=== PATIENT | female | born 1975 | race African-American/Black ===

== ENCOUNTER 2019-05-04 14:48 | Emergency (ER) | payer OTHER, BC ==
[2019-05-04] MEDS ORDERED: OXYMETAZOLINE HCL 0.05% NASAL SPRAY 15 ML BOTTLE NASL ONE (15:42)
--- NOTE | 2019-05-04 17:13 | ER Document Report ---
Entered by CHRISTOPHE PEPPER SCRIBE 05/04/19 1542 Acting as scribe for:PIPPA CARDOZA MD ED ENT - General Chief Complaint: Nose Bleed Stated Complaint: NOSE BLEED Time Seen by Provider: 05/04/19 15:24 Mode of Arrival: Ambulatory Information source: Patient Notes: Patient is a 43-year-old female that presents to the emergency department today with complaints of a nosebleed. Patient states she was sitting at a stoplight, got blurry vision, then went to wipe her nose and noticed she was bleeding. Patient states she has never had a nose bleed in the past. Patient states she is bleeding out of both nares. Patient denies any usage of blood thinning medications. - HPI Patient complains to provider of: Nose problem - Related Data Allergies/Adverse Reactions: No Known Allergies Allergy (Unverified 05/04/19 15:13) Past Medical History - General Information source: Patient - Social History Smoking Status: Current Every Day Smoker Cigarette use (# per day): Yes - 1/3 PPD Chew tobacco use (# tins/day): No Smoking Education Provided: No Frequency of alcohol use: None Drug Abuse: None Occupation: student Lives with: Family Family History: Reviewed & Not Pertinent Patient has suicidal ideation: No Patient has homicidal ideation: No Past Surgical History: Reports: Hx Hysterectomy Review of Systems - Review of Systems Constitutional: No symptoms reported EENT: See HPI, Blurred vision, Other - Epistaxis Cardiovascular: No symptoms reported Respiratory: No symptoms reported Gastrointestinal: No symptoms reported Genitourinary: No symptoms reported Female Genitourinary: No symptoms reported Musculoskeletal: No symptoms reported Skin: No symptoms reported Hematologic/Lymphatic: No symptoms reported Neurological/Psychological: No symptoms reported -: Yes All other systems reviewed and negative Physical Exam - Vital signs Vitals: Temp Pulse Resp BP Pulse Ox 98.6 F 97 16 124/78 97 05/04/19 14:56 05/04/19 14:56 05/04/19 14:56 05/04/19 14:56 05/04/19 14:56 - Notes Notes: PHYSICAL EXAMINATION: GENERAL: Well-appearing, well-nourished and in no acute distress. HEAD: Atraumatic, normocephalic. EYES: Pupils equal round and reactive to light, extraocular movements intact, sclera anicteric, conjunctiva are normal. ENT: The mucosa of both nostrils is a little bit boggy. There is some fresh blood noted in the right nostril floor. There is no obvious bleeding source, and no active bleeding at this time. NECK: Normal range of motion, supple without lymphadenopathy LUNGS: Breath sounds clear to auscultation bilaterally and equal. No wheezes rales or rhonchi. HEART: Regular rate and rhythm without murmurs ABDOMEN: Soft, nontender, normoactive bowel sounds. No guarding, no rebound. No masses appreciated. EXTREMITIES: Normal range of motion, no pitting or edema. No cyanosis. NEUROLOGICAL: Cranial nerves grossly intact. Normal speech, normal gait. Normal sensory, motor, and reflex exams. PSYCH: Normal mood, normal affect. SKIN: Warm, Dry, normal turgor, no rashes or lesions noted. Course - Re-evaluation Re-evalutation: 05/04/19 17:10 Patient's blood pressure is now down to 117 systolic. There has been no bleeding from either side of her nose since she got here. - Vital Signs Vital signs: Temp Pulse Resp BP Pulse Ox 98.6 F 97 16 113/77 97 05/04/19 14:56 05/04/19 14:56 05/04/19 16:13 05/04/19 16:13 05/04/19 14:56 Discharge - Discharge Clinical Impression: Anterior epistaxis Condition: Stable Disposition: HOME, SELF-CARE Additional Instructions: Nosebleed Instructions There is a significant chance of re-bleeding following a nosebleed. Proper care makes this less likely. Do not touch the nose for 24 hours. Do not blow the nose forcefully for one week. After 24 hours, gently apply Vaseline ointment to both nostrils with the tip of a finger, three times a day, for one week. It's normal to have a bloody mucous discharge for a few days. If active bleeding recurs, blow all the blood from the nose, then sit quietly and pinch the nose as firmly as possible for 10 minutes. If this does not stop the bleeding, return for further care. If packing was left in the nose and it starts to come out of the nostril, either tuck it back in or cut it off. Don't pull it out. Return for recheck and removal of the packing when instructed. Persons with frequent nosebleeds should avoid aspirin (unless prescribed for another reason). Humidity in the bedroom, and petroleum jelly applied to the nostrils at night may help. Put bacitracin or Vaseline ointment into each nostril 3 times daily and at bedtime for the next week. If you know starts to bleed again, use the Afrin nose spray 2 squirts a stream of the medicine into each nostril and then pinch the nostrils closed and hold that way for several minutes. Use Afrin to heavily moistened cottonball, twisted into a torpedo shape, and then inserted into the nostril using a twisting rotating action. Leave the cotton ball in the nostril for about 45 minutes and then remove it. If the bleeding continues then return to the emergency room for further evaluation. RETURN TO THE EMERGENCY ROOM IF ANY NEW OR WORSENING SYMPTOMS. Scribe Attestation: 05/04/19 15:44 I personally performed the services described in the documentation, reviewed and edited the documentation which was dictated to the scribe in my presence, and it accurately records my words and actions. I personally performed the services described in the documentation, reviewed and edited the documentation which was dictated to the scribe in my presence, and it accurately records my words and actions.
[2019-05-04 17:25] VITALS: BP 117/76
== END 2019-05-04 17:10 | disposition home or self-care (01) ==
LOC: ER 14:48
DX: R04.0 Epistaxis (principal); F17.210 Nicotine dependence, cigarettes, uncomplicated; Z90.710 Acquired absence of both cervix and uterus
CPT/HCPCS: 99283; J3490